=== PATIENT | male | born 1990 | race Caucasian/White ===

== ENCOUNTER 2018-03-09 07:06 | Observation (INO) | payer BC ==
[~2018-03-09] VITALS: Ht 180.3 cm; Wt 104.5 kg
[2018-03-09] VITALS (8 sets, daily range): BP systolic 86–105; BP diastolic 43–65; PULSE 43–54; TEMP 98.2–99.2
[~2018-03-09 07:06] MED LIST: ULTRAM 50MG TAB50 MG PO; ZITHROMAX 250M250 MG PO
[2018-03-09 08:10] LABS: BASO # 0.1 (0.0-0.2); BASO % 0.4 % (0.0-2.0); EOS # 0.5 (0.0-0.7); EOS % 3.6 % (0-4.0); GRAN # 8.3 (1.4-6.5); GRAN % 65.3 % (42.2-75.2); HEMATOCRIT 41.7 % (42.0-52.0); LYMPH # 3.2 (1.2-3.4); LYMPH % 25.5 % (20.0-51.0); MEAN CELL VOLUME 88 fl (80.0-100.0); MEAN CORPUSCULAR HEMOGLOBIN 30 pg (27.0-31.0); MEAN CORPUSCULAR HGB CONC 34 g/dl (33.0-37.0); MEAN PLATELET VOLUME 9.7 fl (7.4-10.4); MONO # 0.6 (0.1-0.6); MONO % 4.9 % (1.7-9.3); PLATELET COUNT 221 K/mm3 (130-400); RED BLOOD COUNT 4.74 M/mm3 (4.20-5.60); REDCELL DISTRIBUTION WIDTH-CV 13.2 % (11.5-14.5)
[2018-03-09 08:24] LABS: ALANINE AMINOTRANSFERASE 66 U/L (21-72); ALBUMIN 3.6 gm/dL (3.5-5.0); ALKALINE PHOSPHATASE 79 U/L (50-136); ANION GAP 13 mmol/L (7-16); AST,SGOT 46 U/L (15-37); BILIRUBIN,TOTAL 0.9 mg/dL (0.0-1.0); BLOOD UREA NITROGEN 10 mg/dL (9-20); CALCIUM 9.1 mg/dL (8.4-10.2); CARBON DIOXIDE 27 mmol/L (22-30); CHLORIDE 101 mmol/L (98-107); CREATININE, serum 0.61 mg/dL (0.66-1.25); GLUCOSE 84 mg/dL (74-106); POTASSIUM 3.8 mmol/L (3.4-5.0); SODIUM 141 mmol/L (137-145); TOTAL PROTEIN 6.6 gm/dL (6.4-8.2)
[2018-03-09 08:36] LABS: TROPONIN-I < 0.012 ng/mL (0.000-0.034)
[2018-03-10 04:30] VITALS: BP 107/44; PULSE 54; TEMP 98.7
[2018-03-10 07:15] LABS: BASO % 0.5 % (0.0-2.0); EOS # 0.5 (0.0-0.7); EOS % 5.3 % (0-4.0); GRAN % 56.6 % (42.2-75.2); HEMATOCRIT 37.6 % (42.0-52.0); HEMOGLOBIN 12.4 g/dl (13.5-18.0); LYMPH # 2.8 (1.2-3.4); LYMPH % 31.5 % (20.0-51.0); MEAN CELL VOLUME 89 fl (80.0-100.0); MEAN CORPUSCULAR HEMOGLOBIN 29 pg (27.0-31.0); MEAN CORPUSCULAR HGB CONC 33 g/dl (33.0-37.0); MEAN PLATELET VOLUME 10.5 fl (7.4-10.4); MONO # 0.5 (0.1-0.6); MONO % 5.9 % (1.7-9.3); PLATELET COUNT 184 K/mm3 (130-400); RED BLOOD COUNT 4.22 M/mm3 (4.20-5.60); REDCELL DISTRIBUTION WIDTH-CV 13.3 % (11.5-14.5)
[2018-03-10 07:31] LABS: ALBUMIN 3.1 gm/dL (3.5-5.0); BILIRUBIN,TOTAL 0.7 mg/dL (0.0-1.0); CALCIUM 8.6 mg/dL (8.4-10.2); CREATININE, serum 0.55 mg/dL (0.66-1.25); POTASSIUM 3.8 mmol/L (3.4-5.0); TOTAL PROTEIN 5.8 gm/dL (6.4-8.2)
[2018-03-10 08:10] VITALS: BP 101/48; PULSE 48; TEMP 97.3
[2018-03-10 09:41] LABS: PHOSPHOROUS 4.1 mg/dL (2.5-4.5)
[2018-03-10] MEDS ORDERED: MOTRIN 600600 MG/TAB PO (10:32)
[2018-03-10] MEDS ORDERED: ROXICODONE 55 MG/TAB PO (10:32)
[2018-03-10] MEDS ORDERED: COLACE 100100 MG/CAP PO (10:32)
[2018-03-10 11:51] VITALS: BP 94/50; PULSE 46; TEMP 98.3
== END 2018-03-10 13:06 | disposition home or self-care (01) ==
LOC: COL.ER 07:06 → SURG 10:33
PROVIDERS: Hospitalist; Physician Assistant Medical; Surgery
DX: J98.2 Interstitial emphysema (principal); R55 Syncope and collapse; K59.00 Constipation, unspecified; I10 Essential (primary) hypertension
CPT/HCPCS: 99222; 99232-AI; C9113; J2270; J2405; J2543; J7030; J7120; Q9967